=== PATIENT | male | born 1960 | race Caucasian/White ===

== ENCOUNTER 2017-07-22 17:13 | Inpatient (IN) | payer OTHER ==
[~2017-07-22] VITALS: Ht 177.8 cm; Wt 77.1 kg
--- NOTE | 2017-07-22 18:00 | NUR ---
INTAKE ASSESSMENT Received patient in intake. He is AOX4, stable, and ambulatory. Patient admitted for ETOH withdrawal and reported last drink of Vodka was an hour ago. Vital signs WNL. Patient reports allergic to Demerol. Patient denies any history of seizure. Patient bring medications with him from home. Explained unit protocols and patient verbalized understanding. Will admit patient upon admission to third floor.
[2017-07-22] MEDS ORDERED: CLONIDINE HCL 0.1 MG TABLET PO PRN (18:15)
[2017-07-22] MEDS ORDERED: NICOTINE 14 MG/24HR PATCH TD PRN (18:15)
[2017-07-22] MEDS ORDERED: MIRALAX 17 GM POWD.PACK PO PRN (18:15)
[2017-07-22] MEDS ORDERED: LORAZEPAM 2 MG/1 ML VIAL IM PRN (18:15)
[2017-07-22] MEDS ORDERED: ONDANSETRON ODT 4 MG TAB.RAPDIS SL PRN (18:15)
[2017-07-22] MEDS ORDERED: THIAMINE HCL 200 MG/2 ML VIAL IM ONE (18:15)
[2017-07-22] MEDS ORDERED: DICYCLOMINE HCL 20 MG TABLET PO PRN (18:15)
[2017-07-22] MEDS ORDERED: ACETAMINOPHEN 325 MG TABLET PO PRN (18:15)
[2017-07-22] MEDS ORDERED: LOPERAMIDE HCL 2 MG CAPSULE PO PRN ×2 (18:15)
[2017-07-22] MEDS ORDERED: ONDANSETRON 4 MG/2 ML VIAL IM PRN (18:15)
[2017-07-22] MEDS ORDERED: NICOTINE POLACRILEX 4 MG GUM-PK OF TEN BC PRN (18:15)
[2017-07-22] MEDS ORDERED: IBUPROFEN 400 MG TABLET PO PRN (18:15)
[2017-07-22] MEDS ORDERED: MAGNESIUM HYDROXIDE 30 ML LIQUID UDC PO PRN (18:15)
[2017-07-22] MEDS ORDERED: LORAZEPAM 1 MG TABLET PO PRN (18:15)
[2017-07-22 18:49] LABS: *AMPHETAMINE, URINE NEGATIVE (NEGATIVE); *BARBITURATE, URINE NEGATIVE (NEGATIVE); *CANNABINOID, URINE NEGATIVE (NEGATIVE); *COCCAINE, URINE NEGATIVE (NEGATIVE); *OPIATE, URINE NEGATIVE (NEGATIVE); *PHENCYCLIDINE SCREEN,URINE NEGATIVE (NEGATIVE)
[2017-07-22] MEDS: MAG HYDROX/AL HYDROX/SIMETH 30 ML LIQUID UDC PO PRN (19:05)
--- NOTE | 2017-07-22 19:05 | NUR ---
PRN MAALOX Patient came to nursing station c/o of heart burn, PRN Maalox was given as ordered. Endorsed to night nurse to reassess the pt.
[2017-07-22 20:00] VITALS: BP 131/72
--- NOTE | 2017-07-22 20:00 | NUR ---
Reassessment of PRN Maalox PRN Maalox was administered by day shift nurse d/t pt reports of heartburn. At time of reassessment, pt reports relief of heartburn.
--- NOTE | 2017-07-22 20:01 | NUR ---
Admission Note Pt is a 56 year old male admitted to [facility] on 07/22/2017 for ETOH Withdrawal. Pt reports allergies to meperidine and denies seizure history. Pt was able to provide urine drug screen. At time of assessment, CIWA 13, BP 131/72, pulse 105, SpO2 94% room air, resp 18 and temp 98.5. weight 170 and height 510. Pt reports he does not have a specific primary care provider, but goes to [facility], where get is assessed by senior oracle applications developer and MDs. Pt denies being hospitalized within the past 30 days. Pt reports he does not smoke, but uses a vape. Pt is able to understand and respond to all questions pertaining to his hospitalization. Substance Abuse History is as follows: Vodka 750ml/daily, at this rate for the past 2 weeks, last intake of 750ml on 07/22/2017 prior to admission at [facility]. Pt reports he has been drinking since age 23. Pt longest sobriety period is for 1 year from [id number]. When pt does not use he experiences s/s of "Tremors, flushing, anxiety, and depressed, emotional, insomnia". 1. [place], [place] in 2014 for 1 week 2. [place], [place] in x2 in 2014 for 30 days 3. [facility] x2 from 2013 - 2014, 60 days each stay 4. [facility]" in 2017 PMH: Depression, anxiety, HIV, Hodgkin Lymphoma, neuropathic pain, Aortic Stenosis, back sx and right elbow sx. At time of assessment, Pt is alert/oriented x4, pt presents with a CIWA 15: unshaven, flushed face, red eyes, worried, anxious, gross tremors, chills throughout body, restless and emotional. Medications due, pt denies SI/HI. Educational information provided and left at bedside, pt is oriented to room and encouraged to notify staff with any concerns. Safety measures in place, will continue to monitor.
[2017-07-22 20:02] LABS: BASOPHILS % (AUTO) 0.7 % (0.0-2.0); EOSINOPHILS % (AUTO) 0.2 % (0.0-7.0); HEMATOCRIT 43.3 % (36.7-47.1); HEMOGLOBIN 14.7 g/dL (12.5-16.3); LYMPHOCYTES # (AUTO) 1.4 K/uL (20.0-40.0); LYMPHOCYTES % (AUTO) 23.8 % (20.5-51.5); MEAN CORPUSCULAR HEMOGLOBIN 35.1 uug (23.8-33.4); MEAN CORPUSCULAR HGB CONC 34 g/dL (32.5-36.3); MEAN CORPUSCULAR VOLUME 103.6 fL (73.0-96.2); MONOCYTES # (AUTO) 0.6 K/uL (2.0-10.0); MONOCYTES % (AUTO) 9.7 % (0.0-11.0); NEUTROPHILS # (AUTO) 3.8 K/uL (1.8-8.9); NEUTROPHILS % (AUTO) 65.6 % (38.5-71.5); PLATELET COUNT (AUTO) 146 K/uL (152-348); RED BLOOD CELL COUNT(AUTO) 4.18 MIL/uL (4.06-5.63); WHITE BLOOD COUNT (AUTO) 5.7 K/uL (3.6-10.2)
[2017-07-22 20:14] LABS: BILIRUBIN,TOTAL 0.3 mg/dL (0.2-1.0); CREATININE 1.2 mg/dL (0.6-1.3); POTASSIUM 3.8 mmol/L (3.5-5.1); TOTAL PROTEIN, SERUM 7.7 g/dL (6.4-8.2)
[2017-07-22] MEDS: GABAPENTIN 300 MG CAPSULE PO SCH (20:23)
[2017-07-22] MEDS ORDERED: LORAZEPAM 1 MG TABLET PO SCH (21:00)
[2017-07-23] VITALS: BP 116/73
[2017-07-23] MEDS: diphenhydrAMINE 50 MG CAPSULE PO PRN ×2 (00:18→22:32)
--- NOTE | 2017-07-23 00:18 | NUR ---
PRN Administration Pt presents with a CIWA 15. Pt is emotional worries, flushed face, clammy skin, anxious, gross tremors, chills throughout body, restless with pins/needles and reports insomnia. Ativan 2mg PRN and Benadryl 50mg PRN administered. Safety measures in place, will continue to monitor.
--- NOTE | 2017-07-23 01:19 | NUR ---
PRN Reassessment Upon reassessment, pt is in bed, noted sleeping, eyes closed, respirations even/unlabored. Reassessment of CIWA to be completed while pt is awake as ordered. Safety measures in place, will continue to monitor.
[2017-07-23 04:00] VITALS: BP 118/73
--- NOTE | 2017-07-23 04:00 | NUR ---
CIWA deferred d/t pt sleeping, to assess while pt is awake as ordered. BP 118/73, pulse 90, resp 16, SpO2 96% RA, temp 98.[address], will continue to monitor.
--- NOTE | 2017-07-23 07:08 | NUR ---
End of Shift Pt is a 56 year old male admitted to [facility] on 07/22/2017 for ETOH Withdrawal. During shift, pt presented with s/s of withdrawal: unshaven, flushed face, red eyes, worried, anxious, gross tremors, chills throughout body, restless and emotional. Scheduled taper medications administered along with PRN Ativan 2mg and Benadryl 50mg PRN for sleep. Latest CIWA 14. Comfort measures provided, pt educated on disease process and treatment program. Pt slept for 7 hours, intake of 947 ml PO, voids x1 and stool x0. Safety measures in place, call light within reach, side rails up x2, bed locked and in low position. Endorsed to day shift nurse.
--- NOTE | 2017-07-23 07:45 | NUR ---
START OF SHIFT Received report from scene shifter nurse. Pt is lying awake in bed. He is a 56 yo male admitted to [facility] on 07/22 for ETOH dependence. He is ordered an Ativan taper. Pt is observed with facial flushing, moderate tremors, and has moist skin. MD to write prescription for his HIV medications today. He required Benadryl last night for sleep and slept for 7 hours. Safety measures in place.
[2017-07-23 08:00] VITALS: BP 127/70
[2017-07-23] MEDS: LORAZEPAM 1 MG TABLET PO SCH ×3 (08:33→20:39)
[2017-07-23] MEDS: THIAMINE HCL 100 MG TABLET PO SCH (08:34)
[2017-07-23] MEDS: MULTIVITAMINS,THERAPEUTIC TABLET PO SCH (08:34)
[2017-07-23] MEDS: GABAPENTIN 300 MG CAPSULE PO SCH ×3 (08:34→20:38)
[2017-07-23] MEDS: FOLIC ACID 1 MG TABLET PO SCH (08:35)
[2017-07-23] MEDS ORDERED: TUBERCULIN,PURIF.PROT.DERIV. 5 TU/0.1 ML TEST ID ONE (09:00)
[2017-07-23] MEDS ORDERED: EMTRICITABINE/TENOFOVIR TABLET PO SCH (09:00)
[2017-07-23 12:30] VITALS: BP 101/74
[2017-07-23] MEDS: LORAZEPAM 1 MG TABLET PO PRN ×2 (12:54→18:26)
--- NOTE | 2017-07-23 12:55 | NUR ---
PRN Ativan Pt is observed with moderate tremors and facial flushing. He reports feeling anxious. CIWA 10. PRN Ativan administered.
--- NOTE | 2017-07-23 13:55 | NUR ---
PRN Ativan reassessment PRN Ativan effective. Pt is lying in bed resting. His tremors have improved and he reports feeling less anxious. . CIWA 7. Safety measures in place.
[2017-07-23] MEDS: buPROPion XL 150 MG TAB.SR.24H PO SCH (15:25)
[2017-07-23] MEDS: ESCITALOPRAM OXALATE 10 MG TABLET PO SCH (15:25)
[2017-07-23 16:00] VITALS: BP 118/78
[2017-07-23] MEDS: TENOFOVIR DISOPROXIL FUMARATE 300 MG TABLET PO SCH (18:20)
[2017-07-23] MEDS: EMTRICITABINE 200 MG CAPSULE PO SCH (18:21)
--- NOTE | 2017-07-23 18:27 | NUR ---
PRN Ativan Pt is observed to moderate tremors, facial flushing, and reports anxiety CIWA 10. PRN Ativan administered.
--- NOTE | 2017-07-23 19:14 | NUR ---
END OF SHIFT Report provided to night auditor nurse. Pt is lying in bed resting. He was placed on a 1:1 for safety due unsteady gait r/t tremors and neuropathy. He is a 56 yo male admitted to [facility] on 07/22 for ETOH dependence. He is ordered an Ativan taper. Pt spent most of the day in bed but did attend two group meetings. PRN Ativan administered x2 for tremors and anxiety. Pharmacy restarted patient on HIV medications as his Truvada was not approved by his insurance because he recently picked up the prescription up prior to coming to treatment. Pt is disheveled and not motivated to shower today. Last CIWA was 10 prior to receiving PRN Ativan. Endorsed to night auditor for reassessment. Safety measures in place.
--- NOTE | 2017-07-23 19:30 | NUR ---
START OF SHIFT Pt is a 56 year old male admitted to [facility] on 07/22/2017 for ETOH Withdrawal.Pt has HX of HIV and is allergic to Meperidine.Pt continues on Ativan taper as ordered and is tolerating well. PRN Ativan was administered at 1827 for ciwa 10.Pt states feeling better,CIWA decreased to 5.Pt is A/O X 4,appearance is dishevelled,mood is sad and depressed.Pt encouraged to verbalize needs and concerns;positive coping skills encouraged.PO fluids encouraged.All safety measures in place,call light is within reach.Will continue to monitor for safety. Addendum: 07/23/17 at 2051 by CASIE SIMENTAL RN Pt is on 1:1 close observation for safety d/t unsteady gait.
[2017-07-23 20:00] VITALS: BP 119/72
--- NOTE | 2017-07-23 22:34 | NUR ---
PRN BENADRYL GIVEN ORDERED FOR C/O INSOMNIA.WILL MONITOR.
--- NOTE | 2017-07-23 23:30 | NUR ---
PRN F/U PT IS RESTING IN BED WITH EYES CLOSED.NO S/S OF DISTRESS NOTED,WILL BE MONITORED FOR SAFETY.
[2017-07-24] VITALS: BP 120/75
[2017-07-24 03:06] LABS: *BASOS 1 % (Not Estab.); *EOS 0 % (Not Estab.); *HCT 43.2 % (37.5-51.0); *HGB 14.4 g/dL (13.0-17.7); *IMMATURE GRANULOCYTES 0 % (Not Estab.); *LYMPHOCYTES 25 % (Not Estab.); *LYMPHOCYTES ABSOLUTE 1.4 x10E3/uL (0.7-3.1); *MCH 34.6 pg (26.6-33.0); *MCHC 33.3 g/dL (31.5-35.7); *MCV 104 fL (79-97); *MONOCYTES 8 % (Not Estab.); *MONOCYTES ABSOLUTE 0.4 x10E3/uL (0.1-0.9); *NEUTROPHILS 66 % (Not Estab.); *NEUTROPHILS ABSOLUTE 3.8 x10E3/uL (1.4-7.0); *PLT 154 x10E3/uL (150-379); *RBC 4.16 x10E6/uL (4.14-5.80); *RDW 12.9 % (12.3-15.4); *WBC 5.7 x10E3/uL (3.4-10.8)
--- NOTE | 2017-07-24 04:00 | NUR ---
V/S REFUSED/CIWA DEFERRED PT IS SLEEPING COMFORTABLY IN BED,BREATHING IS EVEN AND NON LABORED,ALL SAFETY MEASURES IN PLACE,SITTER IS AT BED SIDE,CIWA DEFERRED D/T BEING ASLEEP.
--- NOTE | 2017-07-24 06:48 | NUR ---
END OF SHIFT Pt is a 56 year old male [facility] 07[facility] for ETOH Withdrawal.Pt has HX of HIV and is allergic to Meperidine.Pt continues on Ativan taper as ordered and is tolerating well.Pt is A/O X 4.PRN Benadryl was given for c/o insomnia with minimal effect.Pt slept intermittently for 4 hrs,stated that he has insomnia and this is how he sleeps at home.fluid intake was 1700 mls,voided x 6.PO fluids encouraged as tolerated.Last CIWA was 5.All safety measures in place,call light is within reach,sitter remains at bedside for unsteady gait.Will continue to monitor for safety.
--- NOTE | 2017-07-24 07:10 | NUR ---
Start Of Shift Received Pt from car shifter nurse, pt is observed in his room resting watching TV. Pt is came in for ETOH withdrawals, Pt states that he feels anxious and shaky. Pt is currently on an Ativan 5 day taper. Upon assessment pt presented Depressed, sad and fatigued. His room was unkempt he was unshaven and diaphoretic. Pt educated on them plan of care, pt verbalized understanding, Encouraged Pt to drink more fluids to help facilitate with the detox process. All safety measures in place pt is on a 1:1 w a RN IMCU for safety and unsteady gait. will continue to monitor pt.
[2017-07-24 08:00] VITALS: BP 125/79
[2017-07-24 08:06] LABS: HEPATITIS B SURFACE AG Negative (Negative)
[2017-07-24] MEDS: FOLIC ACID 1 MG TABLET PO SCH (08:52)
[2017-07-24] MEDS: GABAPENTIN 300 MG CAPSULE PO SCH ×3 (08:52→20:58)
[2017-07-24] MEDS: THIAMINE HCL 100 MG TABLET PO SCH (08:52)
[2017-07-24] MEDS: MULTIVITAMINS,THERAPEUTIC TABLET PO SCH (08:52)
[2017-07-24] MEDS: buPROPion XL 150 MG TAB.SR.24H PO SCH (08:52)
[2017-07-24] MEDS: ESCITALOPRAM OXALATE 10 MG TABLET PO SCH (08:52)
[2017-07-24] MEDS: LORAZEPAM 1 MG TABLET PO SCH ×4 (08:52→20:58)
[2017-07-24] MEDS: EMTRICITABINE 200 MG CAPSULE PO SCH (09:46)
[2017-07-24] MEDS: TENOFOVIR DISOPROXIL FUMARATE 300 MG TABLET PO SCH (09:46)
[2017-07-24 12:00] VITALS: BP 134/80
--- NOTE | 2017-07-24 13:00 | NUR ---
Assumed Care Assumed care for the patient at this time. Patient is a 56 year old male admitted for ETOH withdrawal. Has past medical hx of depression, anxiety, HIV, Hodgkin Lympphoma, neuropathic pain, aortic stenosis, back surgery and right elbow surgery. Allergic to Demerol. FULL CODE. Regular diet. On 1:1 for unsteady gait. Last CIWA 9. No PRN given. All due meds at 0900 given as ordered. Will monitor.
[2017-07-24 13:10] LABS: *HELPER T-LYMPH MARKR(CD4)ABSO 631 /uL (359-1519); *HELPER T-LYNPH MARKER CD4)% 45.1 % (30.8-58.5)
[2017-07-24 16:00] VITALS: BP 137/78
--- NOTE | 2017-07-24 19:08 | NUR ---
End Of Shift Report given to awake overnight counselor nurse. Pt continues his 5 day Ativan taper tolerating treatment, Pts vitals monitored Q4H. Pts last CIWA was a 7. Pts vitals assessed Q4H,Pt c/o insomnia during the night Anxiety fatigue and restlessness, No PRN medication requested during the day shift. Rounds made Q1H Pt slept 8 hours. Pt ate all his meals in full. Pt attended all groups and participated in activities Pt continues to remain on a 1:1 with a CORNCOB PIPES ASSEMBLER for unsteady gait. His intake was 796ml he voided 5 times and had 2BMs. Plan of care followed, all safety measures bed locked in lowest position.
--- NOTE | 2017-07-24 19:10 | NUR ---
Start of Shift Patient Received. Patient is in activities room participating in a group meeting. Patient is currently on a 1:1 for unsteady gait. Patient continues on a modified 5 day Ativan taper. Per endorsement, patient is noted to be compliant with plan of care and is tolerating medications well. Patient is compliant with social and group meetings. No PRN medications administered. Last noted CIWA 7. All needs attended to promptly. Will continue plan of care as ordered.
[2017-07-24 20:14] VITALS: BP 138/78
[2017-07-24] MEDS: diphenhydrAMINE 50 MG CAPSULE PO PRN (20:58)
--- NOTE | 2017-07-24 21:00 | NUR ---
PRN Medication Administration Patient is noted verbalizing increased heart burn and inability of falling asleep. Patient is noted to be tremulous, increased anxiety, and agitation. PRN Mylanta and PRN Benadryl administered with routine medications. Patient is also verbalizing I need to make sure Im leaving by tomorrow night. I have a lot to take care of at home. Encouraged the patient to speak with MD, social workers, and administrative staff tomorrow morning to assist patient with any concerns. Patient verbalized understanding. Will continue to monitor.
[2017-07-24] MEDS: MAG HYDROX/AL HYDROX/SIMETH 30 ML LIQUID UDC PO PRN (21:02)
--- NOTE | 2017-07-24 22:00 | NUR ---
PRN medication Reassessment patient is able to verbalize that PRN Mylanta was effective in minimizing heartburn but PRN Benadryl noted not effective. Patient noted to be awake in bed eating snacks at bedside. Will continue to monitor.
[2017-07-24 22:59] VITALS: BP 131/83
[2017-07-24] MEDS ORDERED: LORAZEPAM 1 MG TABLET PO PRN (23:15)
[2017-07-24] MEDS: LORAZEPAM 1 MG TABLET PO PRN (23:23)
--- NOTE | 2017-07-24 23:25 | NUR ---
PRN Medication Administration patient is noted with episodes of hallucinations. Patient is noted by CHIEF DIVERSITY OFFICER to be talking to his TV remote, looking for a salad in his drawer, and noted to be mumbling to himself. Patient is noted tremulous, anxious, and irritable. Patient is noted with elevated pulse rate of 116. CIWA noted to be 20. While administered medications patient verbalized to nurse "its good that your not rolling around in semen out there." Then verbalized "I feel like I'm in [place]." PRN Ativan 2mg administered as per order. 1:1 remains at bedside. Will continue to monitor.
[2017-07-25] VITALS (11 sets, daily range): BP systolic 108–149; BP diastolic 65–84
--- NOTE | 2017-07-25 00:25 | NUR ---
PRN Administration Reassessment Patient is still noted to be restless, anxious, restless, and continues to mumble words to himself. Patient is able to remain in bed but is noted shift in position and at times patient verbalizes of speaking to his sister.Will continue to monitor.
[2017-07-25] MEDS: LORAZEPAM 1 MG TABLET PO PRN ×3 (01:26→12:53)
--- NOTE | 2017-07-25 01:26 | NUR ---
PRN Medication Administration Patient continues with increased visual hallucinations, increased anxiety, agitation, and noted to be tremulous. Patient is noted attempting to look for his cell phone and wallet. Patient was then redirected to time, location, and situation. patient was then noted to verbalize "oh yea I'm still at the hospital." PRN Ativan 2mg and PRN Clonidine administered as per orders. Will continue to monitor.
--- NOTE | 2017-07-25 02:26 | NUR ---
PRN Medication Reassessment Patient is noted in bed, awake, and eating a sandwich. Patient still noted to be tremulous, anxious, with intermittent episodes of hallucinations. Patient can be easily redirected and reoriented to situation with patient verbalizing understanding. Will continue to monitor.
--- NOTE | 2017-07-25 03:29 | NUR ---
PRN Medication Administration Patient continues with hallucinations, tremulous, and anxiety. Patient is noted verbalizing "We need to fold my clothes before I leave." Per LAUNCHING PAD MECHANIC patient is noted to talk to himself and then suddenly jump out of bed looking for personal items. Patient is easily redirected and oriented to situation with patient verbalizing understanding. PRN Ativan 2mg administered as per order. Will continue to monitor.
--- NOTE | 2017-07-25 04:30 | NUR ---
PRN medication Reassessment Patient is noted awake and watching tv. Breathing even and non labored. CIWA noted to be 13. PRN Ativan 2 mg noted to minimize withdrawal symptoms but patient still noted to be tremulous and anxious. Will continue to monitor.
--- NOTE | 2017-07-25 07:20 | NUR ---
End of Shift Patient is noted in bed, awake and able to make needs known. Breathing even and non labored. patient is noted with episodes of confusion and hallucinations. Patient was given PRN Benadryl for sleep with medication noted not effective. He as also given PRN Mylanta for heart burn with medication noted to be effective. Patient is noted with episodes of visual hallucinations throughout the shift. Patient also explains of one of his dreams and states "I was at a baseball game and there was people encouraging me to drink. I was telling them that I couldn't drink because I have a disease. But then they would make fun of me." Patient also states "I have a strong feeling that the medications are making feel so unsteady on my feet." Allowed patient to verbalize feelings and offered support. Patient also very concerned about financial concerns regarding his stay here at [facility]. Explained to patient that Administration would be made aware. Patient received PRN Ativan 2mg x3 for elevated CIWA. Last noted CIWA 13. All needs attended to promptly. 1:1 remains at bedside for safety. Will endorse to continue plan of care as ordered.
--- NOTE | 2017-07-25 07:30 | NUR ---
START OF SHIFT RECEIVED PT LAYING IN BED SLEEPING, SNORING VERY LOUDLY. PT'S RESPIRATIONS EVEN AND UNLABORED. PT IS ON A 1:1 FOR UNSTEADY GAIT. PT WAS EXPERIENCING VISUAL HALLUCINATIONS AND CONFUSION LAST NIGHT WITH NO SLEEP PER SOUP MIXER NURSE. PT WAS ABLE TO BE REDIRECTED AND REORIENTED. SIDE RAILS UPX2 AND PADDED, BED IS IN LOW POSITION. ALL SAFETY MEASURES IN PLACE. CALL LIGHT WITHIN REACH. WILL CONTINUE TO MONITOR.
--- NOTE | 2017-07-25 08:00 | NUR ---
VS AND EVANWA DEFERRED D/T PT SLEEPING.
[2017-07-25] MEDS ORDERED: LORAZEPAM 1 MG TABLET PO SCH (09:00)
--- NOTE | 2017-07-25 09:02 | NUR ---
PT IS A/OX2, CONFUSED, BUT ABLE TO BE REDIRECTED. PT PRESENTS AGITATION, ANXIETY, RESTLESSNESS, SWEATING, HAS TREMORS, WITH VISUAL, TACTILE, AND HEARING DISTURBANCES. VVS. BP:128/84, HR: 86, O2 SAT: 97%, RR:16, T:98.7. PT CIWA SCORE IS 23. PT STATES, "I FEEL CONFUSED" UPON ASKING HOW HE IS DOING. PT STATES HE NEEDED TO GO HOME AND BE WITH FAMILY. PT STATES, "I CAN'T BE HERE FOR TOO LONG. I NEED TO GO HOME." REASSURED PT AND TOLD PT HE NEEDS TO BE HERE TO SAFELY COMPLETE DETOX. PT SEEMS TO BE MORE CONFUSED TODAY PER BUSINESS ACCOUNT MANAGER WHO WAS WITH HIM YESTERDAY AND TODAY 1:1. ALL SAFETY MEASURES IN PLACE. WILL CONTINUE TO CLOSELY MONITOR.
[2017-07-25] MEDS: TENOFOVIR DISOPROXIL FUMARATE 300 MG TABLET PO SCH (09:04)
[2017-07-25] MEDS: GABAPENTIN 300 MG CAPSULE PO SCH ×3 (09:04→21:11)
[2017-07-25] MEDS: MULTIVITAMINS,THERAPEUTIC TABLET PO SCH (09:05)
[2017-07-25] MEDS: ESCITALOPRAM OXALATE 10 MG TABLET PO SCH (09:05)
[2017-07-25] MEDS: THIAMINE HCL 100 MG TABLET PO SCH (09:05)
[2017-07-25] MEDS: FOLIC ACID 1 MG TABLET PO SCH (09:05)
[2017-07-25] MEDS: buPROPion XL 150 MG TAB.SR.24H PO SCH (09:10)
[2017-07-25] MEDS: EMTRICITABINE 200 MG CAPSULE PO SCH (09:11)
--- NOTE | 2017-07-25 12:00 | NUR ---
VS AND EVANWA DEFERRED D/T PT SLEEPING.
--- NOTE | 2017-07-25 12:53 | NUR ---
PRN PT IS AWAKE, ATIVAN 2 MG PO PRN GIVEN FOR CIWA 19. WILL MONITOR FOR EFFECTIVENESS.
--- NOTE | 2017-07-25 14:00 | NUR ---
REASSESSMENT PT APPEARS CALM AND SLEEPING. RESPIRATIONS EVEN AND UNLABORED. ALL SAFETY MEASURES IN PLACE. WILL CONTINUE TO MONITOR.
[2017-07-25] MEDS ORDERED: LORAZEPAM 1 MG TABLET PO PRN ×2 (14:15)
--- NOTE | 2017-07-25 15:00 | NUR ---
1500 ATIVAN DOSE HELD D/T PT SLEEPING. RESPIRATIONS EVEN AND UNLABORED. ALL SAFETY MEASURES IN PLACE. PT IS ON 1:1 FOR SAFETY. WILL CLOSELY MONITOR. Addendum: 07/25/17 at 1732 by BENJAMIN LUGO RN 1500 ATIVAN 2 MG TAPER DOSE AND GABAPENTIN 600 MG GIVEN LATE AT 1712 DUE TO SLEEP.
[2017-07-25] MEDS: LORAZEPAM 1 MG TABLET PO SCH ×2 (17:12→21:12)
--- NOTE | 2017-07-25 19:30 | NUR ---
END OF SHIFT LAST CIWA 15 @1744. PT CONTINUES TO BE ON A 1:1 WITH A SITTER FOR UNSTEADY GAIT AND SAFETY. PT HAS FACIAL FLUSHING, SOFT SPEECH, BUT EASILY IRRITABLE. TREMORS ARE SEEN. PT SLEPT INTERMITTENTLY THROUGHOUT THE DAY. PT REPORTS BEING ABLE TO WALK MORE STEADILY AFTER HAVING SLEPT WELL. PT STATES, "I CAN WALK BETTER, LOOK." PT ALSO STATED, "I AM TIRED OF LAYING IN BED. I REALLY NEED TO GO HOME. I DIDNT KNOW I WAS STAYING HERE THIS LONG. I NEED TO GO HOME TO HANDLE MATTERS WITH FAMILY AND FRIENDS." REASSURED PT AND ENCOURAGED PT TO STAY, EXPLAINED RISKS AND BENEFITS. PT HAS A POOR MEMORY. PT DOES NOT REMEMBER WHAT MEDS WERE TAKEN EARLIER OR THE DIET ORDERED FROM DIETITIAN AND KEEPS ASKING QUESTIONS REGARDING EVENTS EARLIER IN THE DAY. PT WAS GIVEN ATIVAN 2 MG PO PRN DURING SHIFT. ALL SAFETY MEASURES IN PLACE. WILL GIVE ENDORSEMENT AND PERTINENT INFO TO BLOOD BANK LABORATORY PROFESSIONAL NURSE.
--- NOTE | 2017-07-25 20:00 | NUR ---
Start of Shift Pt is a 56 year old male admitted for ETOH withdrawal, placed on 5 day Ativan taper. Upon assessment, pt is in room with 1:1 sitter at bedside for safety. Pt is alert/oriented x3, appears flushed with clammy skin, tremors felt upon touch, with mild pins/needles. Pt is anxious, however is cooperative with assessment. Pt denies hallucinations - visual and auditory. BP 116/75, pulse 94, resp 17, SpO2 95% room air, resp 17 and temp 98.1. Scheduled taper medications due, safety measures in place, will continue to monitor.
--- NOTE | 2017-07-25 21:00 | NUR ---
Nursing Note Pt is off 1:1 per MD. Pt is noted with steady gait. will continue to monitor.
[2017-07-26] VITALS: BP 112/75
--- NOTE | 2017-07-26 04:00 | NUR ---
EVANWA deferred d/t pt sleeping, to assess while pt is awake as ordered. Pt refused to be woken up for [address], will continue to monitor.
--- NOTE | 2017-07-26 07:00 | NUR ---
End of Shift Pt is a 56 year old male admitted for ETOH withdrawal, placed on 5 day Ativan taper. During shift, pt removed from 1:1 per MD orders, Pt is alert/oriented x3, appeared flushed with clammy skin, tremors felt upon touch, with mild pins/needles. Pt was anxious, however was cooperative with assessment. Pt denies hallucinations - visual and auditory. Scheduled taper medications administered, pt continuous with taper, noted with steady gait. No PRN medications administered during shift. Pt slept for 5 hours, intake of 796 ml PO, voids x2 and stool x0. Safety measures in place, endorsed to day shift nurse.
--- NOTE | 2017-07-26 07:45 | NUR ---
START OF SHIFT Endorse rcvd from ongoing nurse, client's room feels stuffy, clothes thrown on floor. Client is in bed in a position, a/o x 4, he presents anxious mood, flat affect, red, teary eyes, fine tremors felt, clammy skin, he has difficulty concentrating. Client reports in a soft, pressured voice; abdominal cramps, feeling of panic, restless legs, decreased appetite and fatigue. Encourage client to increase PO fluid to facilitate detox. Encourage client to participate in ADL and to attend group therapy for skills to maintain sober. Client is on fifth of 7 modified day Ativan taper, tolerating well. Last CIWA 8 @ 1999. Client had an uneventful night, he slept 5 hrs. Seizure precautions rendered. Call light within reach.
[2017-07-26] MEDS: GABAPENTIN 300 MG CAPSULE PO SCH ×3 (08:48→21:42)
[2017-07-26] MEDS: FOLIC ACID 1 MG TABLET PO SCH (08:48)
[2017-07-26] MEDS: buPROPion XL 150 MG TAB.SR.24H PO SCH (08:49)
[2017-07-26] MEDS: ESCITALOPRAM OXALATE 10 MG TABLET PO SCH (08:49)
[2017-07-26] MEDS: THIAMINE HCL 100 MG TABLET PO SCH (08:49)
[2017-07-26] MEDS: MULTIVITAMINS,THERAPEUTIC TABLET PO SCH (08:49)
[2017-07-26] MEDS: EMTRICITABINE 200 MG CAPSULE PO SCH (08:50)
[2017-07-26] MEDS: TENOFOVIR DISOPROXIL FUMARATE 300 MG TABLET PO SCH (08:50)
[2017-07-26] MEDS: LORAZEPAM 1 MG TABLET PO SCH ×4 (08:55→21:42)
[2017-07-26 08:58] VITALS: BP 116/75
[2017-07-26] MEDS ORDERED: LORAZEPAM 1 MG TABLET PO SCH (09:00)
[2017-07-26 12:47] VITALS: BP 116/75
[2017-07-26 16:55] VITALS: BP 101/64
--- NOTE | 2017-07-26 19:21 | NUR ---
END OF SHIFT Endorsed client to incoming nurse, client is a/o x 4, he is compliant with group therapy, he continues to present with anxious mood, flat affect, restless legs, fine tremors, and nausea. He consumed ~ 50% of meals. Adequate PO fluid intake 2084mL, void x 2, stool x 1. Last CIWA 15 @ 1600. Call light within reach.
--- NOTE | 2017-07-26 19:22 | NUR ---
Start of shift note Received report from day shift nurse. Pt is a 56 yo male, A+Ox4, presenting to [facility] for ETOH withdrawal. Pt noted with anxiety, agitation, and restlessness. Pt has HX of depression, anxiety, HIV, and neuropathic pain which will be monitored during shift. Pt is on 7 day modified Ativan taper, tolerated well. Respirations even and unlabored. Will continue to monitor.
[2017-07-26 20:19] VITALS: BP 124/77
[2017-07-27 00:14] VITALS: BP 131/84
[2017-07-27] MEDS: diphenhydrAMINE 50 MG CAPSULE PO PRN (02:03)
--- NOTE | 2017-07-27 02:03 | NUR ---
PRN Benadryl Pt c/o inability to sleep and requested for PRN Benadryl. Medication given and tolerated well. Will reassess within 1 HR. Will continue to monitor.
--- NOTE | 2017-07-27 03:00 | NUR ---
PRN Benadryl Reassessment Medication effective. Pt is resting well in bed. No s/s of ASE noted at this time. Respirations even and unlabored. Will continue to monitor.
[2017-07-27 04:04] VITALS: BP 128/79
--- NOTE | 2017-07-27 06:57 | NUR ---
End of shift note Pt was continuously noted with anxiety, agitation, and restlessness during shift. Pt was out of room periodically to go smoke on smoking patio and to get food from kitchen. Pt was given PRN Benadryl @0203 for inability to sleep. Medication was effective. No s/s of ASE noted . Pt slept for a total of 7 HRS. Last CIWA: 9 @0400. V/S were WNL throughout shift. Respirations even and unlabored. Will endorse to day shift nurse.
--- NOTE | 2017-07-27 07:35 | NUR ---
START OF SHIFT Endorse rcvd from ongoing nurse, client's room feels stuffy, clothes thrown on floor. Client is in bed in a position, a/o x 4, he presents anxious mood, flat affect, flushed face, gross tremors, clammy skin, he has difficulty concentrating. Client reports in a soft voice; abdominal cramps, feeling of panic, restless legs, and fatigue. Encourage client to increase PO fluid to facilitate detox. Encourage client to participate in ADL and to attend group therapy for skills to maintain sober. Client is on six of 7 modified day Ativan taper, tolerating well. Last CIWA 9 @ 0400. Client slept 7 hrs. Seizure precautions rendered. Call light within reach.
[2017-07-27 08:00] VITALS: BP 107/70
[2017-07-27] MEDS: MULTIVITAMINS,THERAPEUTIC TABLET PO SCH (09:06)
[2017-07-27] MEDS: GABAPENTIN 300 MG CAPSULE PO SCH ×3 (09:06→22:29)
[2017-07-27] MEDS: buPROPion XL 150 MG TAB.SR.24H PO SCH (09:07)
[2017-07-27] MEDS: ESCITALOPRAM OXALATE 10 MG TABLET PO SCH (09:08)
[2017-07-27] MEDS: THIAMINE HCL 100 MG TABLET PO SCH (09:08)
[2017-07-27] MEDS: FOLIC ACID 1 MG TABLET PO SCH (09:08)
[2017-07-27] MEDS: LORAZEPAM 1 MG TABLET PO SCH ×3 (09:09→22:29)
[2017-07-27] MEDS: TENOFOVIR DISOPROXIL FUMARATE 300 MG TABLET PO SCH (09:09)
[2017-07-27] MEDS: EMTRICITABINE 200 MG CAPSULE PO SCH (09:09)
[2017-07-27 12:00] VITALS: BP 112/71
[2017-07-27 16:55] VITALS: BP 126/72
--- NOTE | 2017-07-27 19:43 | NUR ---
END OF SHIFT Endorsed client to incoming nurse, client is a/o x 4, he is compliant with group therapy, he continues to present with anxious mood, flat affect, restless legs, gross tremors, and nausea. He consumed ~ 50% of meals. Adequate PO fluid intake 2737mL, void x 5, stool x 2. Last CIWA 14 @ 1600. Call light within reach.
--- NOTE | 2017-07-27 19:44 | NUR ---
Start of shift note Received report from day shift nurse. Pt is a 56 yo male, A+Ox4, presenting to [facility] for ETOH withdrawal. Pt noted with anxiety, agitation, restlessness, and tremors. Pt has HX of Depression, anxiety, and neuropathic pain which will be monitored during shift. Pt is on 7 day modified Ativan taper, tolerated well. Respirations even and unlabored. Will continue to monitor.
[2017-07-27 20:15] VITALS: BP 95/68
[2017-07-28 00:22] VITALS: BP 129/78
[2017-07-28] MEDS ORDERED: HYDROXYZINE PAMOATE 25 MG CAPSULE PO PRN (03:15)
--- NOTE | 2017-07-28 03:31 | NUR ---
PRN Vistaril Pt c/o anxiety and requested for PRN Vistaril. Medication given and tolerated well. Will reassess within 1 HR. Will continue to monitor.
[2017-07-28 04:21] VITALS: BP 126/75
--- NOTE | 2017-07-28 04:30 | NUR ---
PRN Vistaril Reassessment Medication effective. Pt expresses reduction in anxiety and is resting well in bed. No s/s of ASE noted at this time. Respirations even and unlabored. Will continue to monitor.
--- NOTE | 2017-07-28 07:00 | NUR ---
End of shift note Pt was continuously noted with tremors, restlessness, agitation, and anxiety. Pt was out of room frequently to smoke in smoking patio, to get food from kitchen, and to interact with other patients in recreational room. Pt was given PRN Vistaril @0331 for anxiety. Pt slept for a total of 7 HRS. Last CIWA: 9 @0400. V/S were WNL during shift. Respirations even and unlabored. Will endorse to day shift nurse.
--- NOTE | 2017-07-28 07:30 | NUR ---
START OF SHIFT Pt is a 56 yr old male admitted on 07/22/17 for ETOH W/d and is on 7 day Ativan taper as ordered. medication jazmin well. Received report from warehouse supervisor 3rd shift nurse. Pt received Vistaril PRN at 0330 during the night. Last CIWA score was 9 at 0400. Pt slept for 7 hours. Pt is currently in bed resting with respirations even and unlabored. Skin is intact, warm and moist to touch. Gross tremors are observed on bilateral arms. Pt was encouraged increase fluid intake. Safety precautions observed. Call light is within reach. Will continue to monitor.
[2017-07-28 08:00] VITALS: BP 111/74
[2017-07-28] MEDS: LORAZEPAM 1 MG TABLET PO SCH ×2 (09:29→22:31)
[2017-07-28] MEDS: FOLIC ACID 1 MG TABLET PO SCH (09:29)
[2017-07-28] MEDS: GABAPENTIN 300 MG CAPSULE PO SCH ×3 (09:29→22:31)
[2017-07-28] MEDS: ESCITALOPRAM OXALATE 10 MG TABLET PO SCH (09:29)
[2017-07-28] MEDS: MULTIVITAMINS,THERAPEUTIC TABLET PO SCH (09:29)
[2017-07-28] MEDS: THIAMINE HCL 100 MG TABLET PO SCH (09:30)
[2017-07-28] MEDS: TENOFOVIR DISOPROXIL FUMARATE 300 MG TABLET PO SCH (09:30)
[2017-07-28] MEDS: buPROPion XL 150 MG TAB.SR.24H PO SCH (09:30)
[2017-07-28] MEDS: EMTRICITABINE 200 MG CAPSULE PO SCH (09:30)
[2017-07-28 12:00] VITALS: BP 119/79
[2017-07-28 16:00] VITALS: BP 116/75
--- NOTE | 2017-07-28 17:23 | NUR ---
Client was prompted to attend group therapy sessions. Client stated that he would attend the next group session of he was feeling up to it.
--- NOTE | 2017-07-28 19:30 | NUR ---
END OF SHIFT Pt is a 56 yr old male admitted on 07/22/17 for ETOH W/d and is on 7 day Ativan taper as ordered. medication jazmin well. Pt has been cooperative with medication regimen and plan of care. Pt is observed attending group therapy during the day. Pt c/o increase anxiety and was noted with facial flush. Gross tremors are seen on bilateral arms. Last CIWA score was 10 at 1600. No PRN's were given during the day. Pt consumed 100% of meals. Pt was encouraged increase fluid intake. Safety precautions observed. Call light is within reach.
--- NOTE | 2017-07-28 19:31 | NUR ---
Start of shift note Received report from day shift nurse. Pt is a 56 yo male, A+Ox4, presenting to [facility] for ETOH withdrawal. Pt noted to be tremulous, anxious, and agitated. Pt has HX of Anxiety, depression, and neuropathic pain which will be monitored during shift. Pt is on 7 day modified Ativan taper, tolerated well. Respirations even and unlabored. Will continue to monitor.
[2017-07-28 20:14] VITALS: BP 106/80
[2017-07-29] MEDS: diphenhydrAMINE 50 MG CAPSULE PO PRN ×2 (00:04→23:57)
[2017-07-29] MEDS: MAG HYDROX/AL HYDROX/SIMETH 30 ML LIQUID UDC PO PRN ×2 (00:04→10:20)
--- NOTE | 2017-07-29 00:04 | NUR ---
PRN Maalox and Benadryl Pt c/o heartburn and inability to sleep and requested for PRN Maalox an Benadryl. Medications given and tolerated well. Will continue to monitor.
[2017-07-29 00:12] VITALS: BP 110/71
--- NOTE | 2017-07-29 01:00 | NUR ---
PRN Maalox and Benadryl Reassessment Medications effective. Pt expresses reduction in heart burn. Pt is resting well in bed at this time. Respirations even and unlabored. Will continue to monitor.
[2017-07-29 04:15] VITALS: BP 119/77
--- NOTE | 2017-07-29 07:00 | NUR ---
End of shift note Pt was continuously noted to be anxious, agitated, restless, and tremulous. Pt was frequently out of room to get food from kitchen, to go smoke on smoking patio, and to interact with other patients in recreational room. Pt was given PRN Maalox for heartburn and PRN Benadryl for inability to sleep @0004. Pt slept for a total of 7 HRS. Last CIWA: 8 @0400. V/S were WNL during shift. Respirations even and unlabored. Will endorse to day shift nurse.
--- NOTE | 2017-07-29 07:35 | NUR ---
START OF SHIFT Pt is a 56 yr old male AA&Ox4. Pt was admitted on 07/22/17 for ETOH W/d and is on 7 day Ativan taper as ordered. Medication jazmin well. Received report from casino shift manager nurse. Pt received Maalox PRN and Benadryl PRN the night. Last CIWA score was 8 at 0400. Pt slept for 7 hours. Pt is c/o anxiety but is able to cope with anxiety level. Skin is intact, warm and moist to touch. Gross tremors are observed on bilateral arms. Pt was encouraged increase fluid intake. Safety precautions observed. Call light is within reach. Will continue to monitor.
[2017-07-29 08:10] VITALS: BP 107/66
[2017-07-29] MEDS: EMTRICITABINE 200 MG CAPSULE PO SCH (08:56)
[2017-07-29] MEDS: TENOFOVIR DISOPROXIL FUMARATE 300 MG TABLET PO SCH (08:56)
[2017-07-29] MEDS: GABAPENTIN 300 MG CAPSULE PO SCH ×3 (08:56→20:40)
[2017-07-29] MEDS: ESCITALOPRAM OXALATE 10 MG TABLET PO SCH (08:56)
[2017-07-29] MEDS: MULTIVITAMINS,THERAPEUTIC TABLET PO SCH (08:56)
[2017-07-29] MEDS: FOLIC ACID 1 MG TABLET PO SCH (08:56)
[2017-07-29] MEDS: THIAMINE HCL 100 MG TABLET PO SCH (08:56)
[2017-07-29] MEDS: buPROPion XL 150 MG TAB.SR.24H PO SCH (08:58)
--- NOTE | 2017-07-29 10:23 | NUR ---
PRN GIVEN Pt c/o heartburn. Maalox 30ml PO PRN was given. Encouraged increase fluid intake. Will continue to monitor.
[2017-07-29 12:00] VITALS: BP 126/80
[2017-07-29] MEDS ORDERED: BUPR-96 PO (14:42)
[2017-07-29] MEDS ORDERED: ESCI10TA PO (14:42)
[2017-07-29] MEDS ORDERED: HYDR-3895 PO (14:42)
[2017-07-29] MEDS ORDERED: GABA-534 PO (14:42)
[2017-07-29 16:00] VITALS: BP 145/85
--- NOTE | 2017-07-29 19:00 | NUR ---
END OF SHIFT Pt is a 56 yr old male, AA&Ox4. Pt was admitted on 07/22/17 for ETOH withdrawal and has completed a 7 day Ativan taper as ordered. Medication jazmin well. Pt has been cooperative with medication regimen and plan of care. Pt has been observed attending group. Pt is to be discharged to home tomorrow. Pt c/o anxiety due to discharged but has been able to cope with anxiety level. Skin is intact, warm and moist to touch. Fine tremors are still seen on bilateral hands. Pt received Maalox PRN for heartburn. Medication was effective. Pt was encouraged increase fluid intake. Last CIWA score was 6 at 1600. Safety precautions observed. Call light is within reach.
[2017-07-29 20:00] VITALS: BP 136/91
--- NOTE | 2017-07-29 20:00 | NUR ---
START OF SHIFT NOTE RECEIVED REPORT FROM DAY SHIFT NURSE. PATIENT IS A 56 YEAR OLD MALE ADMITTED FOR ETOH WITHDRAWAL. PATIENT COMPLETED MODIFIED ATIVAN TAPER. PATIENT WAS MEDICALLY CLEARED TO BE DISCHARGE TOMORROW. PATIENT HAS HISTORY OF HIV AND ON HIV MEDICATION. PRN MAALOX GIVEN. RECEIVED PATIENT IN THE ROOM, HE JUST CAME [place] [facility].PATIENT STATES "I'M ANXIOUS FOR CHANGE". POSITIVE ENCOURAGEMENT GIVEN. SAFETY MEASURES IN PLACE. CALL LIGHT IN REACH. WILL CONTINUE TO MONITOR.
--- NOTE | 2017-07-29 23:57 | NUR ---
PRN BENADRYL ADMINISTRATION PATIENT REQUESTS FOR SLEEP AID. WILL MONITOR FOR EFFECTIVENESS
[2017-07-30] VITALS: BP 137/82
[2017-07-30] MEDS: MAG HYDROX/AL HYDROX/SIMETH 30 ML LIQUID UDC PO PRN (01:13)
--- NOTE | 2017-07-30 01:13 | NUR ---
PRN MAALOX ADMINISTRATION PATIENT C/O HEARTBURN. WILL MONITOR FOR EFFECTIVENESS
--- NOTE | 2017-07-30 02:13 | NUR ---
PRN BENADRYL AND MAALOX RE-ASSESSMENT PATIENT ASLEEP AT THIS TIME. RESPIRATION EVEN AND UNLABORED. WILL CONTINUE TO MONITOR.
--- NOTE | 2017-07-30 04:00 | NUR ---
CIWA DEFERRED PATIENT SLEEPING. VS REFUSED. RESPIRATION EVEN AND UNLABORED. WILL CONTINUE TO MONITOR
--- NOTE | 2017-07-30 07:12 | NUR ---
END OF SHIFT NOTE PATIENT SLEPT 6 HOURS. FLUID INTAKE 750 ML VOIDED X 2 . NO BM. PATIENT COMPLETED MODIFIED ATIVAN TAPER, TOLERATED WELL AND NO ADVERSE REACTION. PATIENT IS DISCHARGING TODAY. PATIENT HAS HISTORY OF HIV AND ON HIV MEDICATION . PATIENT WAS ANXIOUS DUE TO HIM LEAVING. POSITIVE ENCOURAGEMENT GIVEN. AT 2357, PATIENT REQUEST SLEEP AID. PRN BENADRYL GIVEN. PATIENT C/O HEARTBURN AT 0113, PRN MAALOX GIVEN. PATIENT COMPLIANT WITH MEDICATION AND TREATMENT PLAN . SAFETY MEASURES IN PLACE. CALL LIGHT IN REACH. WILL CONTINUE TO MONITOR. LAST CIWA 2 .
--- NOTE | 2017-07-30 07:39 | NUR ---
START OF SHIFT RECEIVED PT A/OX4, RESPIRATIONS EVEN AND UNLABORED. PT REPORTS HAVING ANXIETY D/T LEAVING DETOX AND CONTINUING TREATMENT BUT STATES, "I AM EXCITED FOR MY NEW LIFE." SIDE RAILS UPX2, BED IS IN LOWEST POSITION. CALL LIGHT WITHIN REACH. ALL SAFETY MEASURES IN PLACE. WILL CONTINUE TO MONITOR.
[2017-07-30 08:00] VITALS: BP 111/69
[2017-07-30] MEDS: FOLIC ACID 1 MG TABLET PO SCH (08:40)
[2017-07-30] MEDS: GABAPENTIN 300 MG CAPSULE PO SCH (08:40)
[2017-07-30] MEDS: THIAMINE HCL 100 MG TABLET PO SCH (08:40)
[2017-07-30] MEDS: MULTIVITAMINS,THERAPEUTIC TABLET PO SCH (08:40)
[2017-07-30] MEDS: ESCITALOPRAM OXALATE 10 MG TABLET PO SCH (08:40)
[2017-07-30] MEDS: TENOFOVIR DISOPROXIL FUMARATE 300 MG TABLET PO SCH (08:41)
[2017-07-30] MEDS: EMTRICITABINE 200 MG CAPSULE PO SCH (08:41)
[2017-07-30] MEDS: buPROPion XL 150 MG TAB.SR.24H PO SCH (08:53)
--- NOTE | 2017-07-30 09:50 | NUR ---
DISCHARGE NOTE PT IS IN STABLE CONDITION, VVS, A/OX4, RESPIRATIONS EVEN AND UNLABORED. LAST CIWA 2 @0900. PT SIGNED ALL D/C PAPERWORK AND D/C INSTRUCTIONS GIVEN. PT VERBALIZED UNDERSTANDING. PT LEFT BUILDING WITH ALL BELONGINGS, HOME MEDS, PRESCRIPTIONS AND D/C PAPERWORK. PT WAS PICKED UP BY "[facility]." Addendum: 07/30/17 at 1005 by BENJAMIN LUGO RN PT LEFT THE BUILDING AT 0950 ON 07/02/17.
== END 2017-07-30 09:50 | disposition home or self-care (01) | DRG 895 ==
LOC: SRC 17:35
PROVIDERS: ADMIT Internal Medicine; ATTEND Internal Medicine
PROC: HZ2ZZZZ Detoxification Services for Substance Abuse Treatment (ICD-10-PCS; principal; 2017-07-22)
PROC: HZ41ZZZ Group Counseling for Substance Abuse Treatment, Behavioral (ICD-10-PCS; 2017-07-24)
PROC: HZ31ZZZ Individual Counseling for Substance Abuse Treatment, Behavioral (ICD-10-PCS; 2017-07-24)
DX: F10.231 Alcohol dependence with withdrawal delirium (principal); E87.0 Hyperosmolality and hypernatremia; C81.90 Hodgkin lymphoma, unspecified, unspecified site; F33.2 Major depressive disorder, recurrent severe without psychotic features; K70.10 Alcoholic hepatitis without ascites; F17.290 Nicotine dependence, other tobacco product, uncomplicated; Y90.9 Presence of alcohol in blood, level not specified; Z91.14 Patient's other noncompliance with medication regimen; F41.9 Anxiety disorder, unspecified; I35.0 Nonrheumatic aortic (valve) stenosis; Z82.49 Family history of ischemic heart disease and other diseases of the circulatory system; Z81.1 Family history of alcohol abuse and dependence; G62.9 Polyneuropathy, unspecified
CPT/HCPCS: 36415; 70030-TC; 80307; 83735; 85025; 86361; 86580; 86592; 86705; 86803; 87340; 87806; A4663; G0480; J3411; J8499; Q0163; Z7610